=== PATIENT | female | born 1965 | race Caucasian/White ===

== ENCOUNTER 2017-03-15 21:50 | Emergency (ER) | payer MEDICAID ==
[~2017-03-15] VITALS: Ht 149.9 cm; Wt 54.4 kg
[~2017-03-15 21:50] MED LIST: TENO300T2 PO
[2017-03-15 21:53] VITALS: BP 158/93
--- NOTE | 2017-03-15 22:09 | NUR ---
DR. BARBOSA AT BEDSIDE FOR EVAL.
[2017-03-15] MEDS ORDERED: TDAP [DIPH/PERTUSSIS/TET] 0.5 ML VIAL IM ONE ×2 (22:11→22:30)
== END 2017-03-15 22:25 | disposition home or self-care (01) ==
LOC: ER 21:50
DX: S61.233A Puncture wound without foreign body of left middle finger without damage to nail, initial encounter (principal); I10 Essential (primary) hypertension; F17.200 Nicotine dependence, unspecified, uncomplicated; G62.9 Polyneuropathy, unspecified; F31.9 Bipolar disorder, unspecified; Z88.0 Allergy status to penicillin; Z90.710 Acquired absence of both cervix and uterus; Z88.1 Allergy status to other antibiotic agents; W29.8XXA Contact with other powered hand tools and household machinery, initial encounter; Y93.89 Activity, other specified; Y92.89 Other specified places as the place of occurrence of the external cause; Y99.9 Unspecified external cause status
CPT/HCPCS: 90471; 90715; 99283; A4606; A6402; Z7610

== ENCOUNTER 2017-09-23 19:59 | Emergency (ER) | payer MEDICAID ==
--- NOTE | 2017-09-23 20:00 | NUR ---
CALLED PT NAME X 3 IN WAITING ROOM. NO RESPONSE AT THIS TIME. PER ADMITTING PT IN HALLWAY. NO ONE IN HALLWAY
--- NOTE | 2017-09-23 20:12 | NUR ---
CALLED PT NAME X3. NO ONE IN WR AT THIS TIME.
--- NOTE | 2017-09-23 20:22 | NUR ---
CALLED PT IN WR X 3. NO RESPONSE. NO ONE IN WR.
--- NOTE | 2017-09-23 20:30 | NUR ---
CALLED PT NAME X 3 IN WAITING ROOM. NO RESPONSE AT THIS TIME. PER ADMITTING PT IN HALLWAY. NO ONE IN HALLWAY
== END 2017-09-23 20:31 | disposition left against medical advice (07) ==
LOC: ER 20:01
DX: Z53.21 Procedure and treatment not carried out due to patient leaving prior to being seen by health care provider (principal)